=== PATIENT | male | born 1965 | race Caucasian/White ===

== ENCOUNTER 2017-01-29 09:54 | Emergency (ER) | payer OTHER ==
[~2017-01-29] VITALS: Ht 175.3 cm; Wt 105.5 kg
[~2017-01-29 09:54] MED LIST: ADVIL200 MG PO; ALBUTEROL SULF8.5 GM IH; CEPHALEXIN500 MG PO; Colace PO; DuoNeb IH; LANTUS 3 M100 UNITS1 SQ; Lasix PO; Maalox, Mylanta PO; NORCO 5/3251 TABLET PO; NOVOLOG PE100 UNITS/ SC; NOVOLOG PE100 UNITS/ SQ; Protonix PO; SYMBICORT60 INHALAT IH; TYLENOL REGULA325 MG PO
[2017-01-29 10:29] LABS: HEMATOCRIT 48.5 % (38.0-50.0); MCHC 34.2 G/DL (30.0-36.0); MCV 84.6 FL (86-99); MEAN PLAT.VOLUME 11.1 uM^3 (9.0-12.4); PLATELET COUNT 244 K/uL (156-360); RBC DIS.WIDTH-CV 12.1 % (11.8-14.6); RBC DIS.WIDTH-SD 37.1 % (39-53); RED BLOOD COUNT 5.73 M/uL (4.00-5.50)
[2017-01-29 10:36] LABS: CHLORIDE 103 mEq/L (99-109); POTASSIUM 4.1 mEq/L (3.7-5.4); SODIUM 135 mEq/L (136-147)
[2017-01-29 10:38] LABS: GLUCOSE 375 mg/dL (70-99)
[2017-01-29 10:40] LABS: ANION GAP 6 MEQ/L (2-14)
[2017-01-29 10:42] LABS: GFR ESTIMATE (CALCULATED) > 59 mL/min/
[2017-01-29 10:43] LABS: UREA NITROGEN (BUN) 15 mg/dL (9-23)
[2017-01-29 11:04] LABS: TROP-I INTERPRETATION NEGATIVE; TROPONIN-I < 0.01 ng/mL (0.0-0.30)
[2017-01-29] MEDS ORDERED: BENTYL10 MG PO (12:09)
[2017-01-29] MEDS ORDERED: ZOFRAN ODT4 MG PO (12:09)
[2017-01-29 13:02] VITALS: BP 132/66
== END 2017-01-29 13:04 | disposition home or self-care (01) ==
LOC: EME 09:54
DX: B34.9 Viral infection, unspecified (principal); R19.7 Diarrhea, unspecified; J32.9 Chronic sinusitis, unspecified; E86.0 Dehydration; I10 Essential (primary) hypertension; J44.9 Chronic obstructive pulmonary disease, unspecified; E78.5 Hyperlipidemia, unspecified; E11.9 Type 2 diabetes mellitus without complications; F17.200 Nicotine dependence, unspecified, uncomplicated
CPT/HCPCS: 71020; 80048; 84484; 85027; 93005; 99281; 99285; J7030

== ENCOUNTER 2017-06-18 09:57 | Emergency (ER) | payer OTHER ==
[~2017-06-18] VITALS: Ht 177.8 cm; Wt 113.6 kg
[~2017-06-18 09:57] MED LIST changes: +BENTYL10 MG PO; +ZOFRAN ODT4 MG PO
[2017-06-18 10:50] LABS: HEMATOCRIT 46.9 % (38.0-50.0); HEMOGLOBIN 16.2 G/DL (12.5-16.6); MCH 29.1 PG (29.0-34.0); MCHC 34.5 G/DL (30.0-36.0); MCV 84.2 FL (86-99); PLATELET COUNT 229 K/uL (156-360); RBC DIS.WIDTH-CV 11.9 % (11.8-14.6); RBC DIS.WIDTH-SD 35.8 % (39-53); RED BLOOD COUNT 5.57 M/uL (4.00-5.50); WHITE BLOOD COUNT 9.6 K/uL (4.1-10.2)
[2017-06-18 11:02] LABS: CHLORIDE 103 mEq/L (99-109); SODIUM 137 mEq/L (136-147)
[2017-06-18 11:04] LABS: GLUCOSE 371 mg/dL (70-99)
[2017-06-18 11:08] LABS: CREATININE 0.8 mg/dL (0.6-1.3); GFR ESTIMATE (CALCULATED) > 59 mL/min/ (58.99-99999)
[2017-06-18 11:09] LABS: UREA NITROGEN (BUN) 10 mg/dL (9-23)
[2017-06-18 11:11] LABS: TROP-I INTERPRETATION NEGATIVE; TROPONIN-I < 0.01 ng/mL (0.0-0.30)
[2017-06-18 15:09] LABS: TROP-I INTERPRETATION NEGATIVE; TROPONIN-I < 0.01 ng/mL (0.0-0.30)
[2017-06-18] MEDS ORDERED: DEBROX15 ML RIGHT EAR (16:28)
[2017-06-18] MEDS ORDERED: NOVOLOG 10100 UNITS/ SC (16:28)
[2017-06-18] MEDS ORDERED: MOTION RELIEF25 MG PO (16:28)
[2017-06-18 16:47] VITALS: BP 126/79
== END 2017-06-18 16:52 | disposition home or self-care (01) ==
LOC: EME 09:57
PROVIDERS: Nurse Practitioner Family
DX: R42 Dizziness and giddiness (principal); E11.65 Type 2 diabetes mellitus with hyperglycemia; H61.21 Impacted cerumen, right ear; T50.996A Underdosing of other drugs, medicaments and biological substances, initial encounter; Z91.14 Patient's other noncompliance with medication regimen; J44.9 Chronic obstructive pulmonary disease, unspecified; I11.0 Hypertensive heart disease with heart failure; I50.9 Heart failure, unspecified; E78.5 Hyperlipidemia, unspecified; F17.200 Nicotine dependence, unspecified, uncomplicated
CPT/HCPCS: 71046; 80048; 82948; 83880; 84484; 85027; 93005; 99281; 99285; J7030